=== PATIENT | male | born 2000 | race Caucasian/White ===

== ENCOUNTER 2023-03-10 14:53 | Emergency (ER) | payer BC, OTHER ==
[2023-03-10] MEDS ORDERED: Lidocaine 4% 1 each Patch TOP STA (15:57)
[2023-03-10] MEDS ORDERED: Acetaminophen/HYDROcodone 325-5 MG Tab PO ONE (15:57)
[2023-03-10] MEDS ORDERED: Ondansetron 4 MG Tab.DIS PO ONE (15:57)
[2023-03-10 19:48] VITALS: BP 128/76; PULSE 71
== END 2023-03-10 18:50 | disposition home or self-care (01) ==
LOC: MW.ED 14:53
DX: S42.021A Displaced fracture of shaft of right clavicle, initial encounter for closed fracture (principal); S63.501A Unspecified sprain of right wrist, initial encounter; S80.212A Abrasion, left knee, initial encounter; V29.99XA Rider (driver) (passenger) of other motorcycle injured in unspecified traffic accident, initial encounter
CPT/HCPCS: 29125; 73000; 73030; 73110; 73130; 99283; A9270